=== PATIENT | male | born 1990 | race American Indian/Alaskan Native ===

== ENCOUNTER 2020-10-19 19:29 | Emergency (ER) | payer SELFPAY ==
[2020-10-19 19:37] VITALS: BP 141/97
[2020-10-19] MEDS ORDERED: ONDANSETRON 4 MG/2 ML INJ IV ONE (19:37)
[2020-10-19] MEDS ORDERED: LACTATED RINGERS 1,000 ML IV ONE (19:37)
--- NOTE | 2020-10-19 19:38 | Emergency Department Report ---
ED General Adult HPI - General Chief complaint: Abdominal Pain Stated complaint: ABDOMINAL PAIN;VOMITING;DIARRHEA Time Seen by Provider: 10/19/20 19:36 Source: patient Mode of arrival: Ambulatory Limitations: No Limitations - History of Present Illness Initial comments: 30-year-old -[place] male patient presents with complaints of nausea, vomiting, diarrhea, and upper abdominal pain starting last night. Patient states the vomiting began after heavy alcohol intake. He denies any hematemesis/coffee-ground emesis, melena/hematochezia, fever/chills/sweats, chest pain, shortness of breath, cough, urinary symptoms. Patient rates his current abdominal pain is a 5/10 in severity and describes it as achy cramping type pain. No history of abdominal surgeries per patient. No other prior medical history. -: Sudden - Related Data Previous Rx's Medication Instructions Recorded Last Taken Type Famotidine [Pepcid] 20 mg PO BID 5 Days #10 tablet 10/19/20 Unknown Rx Ondansetron [Zofran Odt] 4 mg PO Q8HR PRN #8 tab.rapdis 10/19/20 Unknown Rx Allergies Allergy/AdvReac Type Severity Reaction Status Date / Time No Known Allergies Allergy Unverified 10/19/20 19:37 ED Review of Systems ROS: Stated complaint: ABDOMINAL PAIN;VOMITING;DIARRHEA Other details as noted in HPI Constitutional: denies: chills, diaphoresis, fever, malaise, weakness Respiratory: denies: cough, shortness of breath Cardiovascular: denies: chest pain Endocrine: denies: excessive sweating Gastrointestinal: abdominal pain, nausea, vomiting, diarrhea. denies: constipation, hematemesis, melena, hematochezia Genitourinary: denies: urgency, dysuria, frequency, hematuria, discharge Musculoskeletal: denies: back pain Skin: denies: change in color Neurological: denies: headache ED Past Medical Hx - Social History Smoking Status: Current Every Day Smoker - Medications Home Medications: Home Medications Medication Instructions Recorded Confirmed Last Taken Type Famotidine [Pepcid] 20 mg PO BID 5 Days #10 tablet 10/19/20 Unknown Rx Ondansetron [Zofran Odt] 4 mg PO Q8HR PRN #8 tab.rapdis 10/19/20 Unknown Rx ED Physical Exam - General Limitations: No Limitations General appearance: alert, in no apparent distress - Head Head exam: Present: atraumatic, normocephalic - Eye Eye exam: Present: normal appearance. Absent: scleral icterus - Neck Neck exam: Present: normal inspection - Respiratory Respiratory exam: Present: normal lung sounds bilaterally. Absent: respiratory distress - Cardiovascular Cardiovascular Exam: Present: regular rate, normal rhythm - GI/Abdominal GI/Abdominal exam: Present: soft, normal bowel sounds. Absent: distended, tenderness, guarding, rebound, rigid - Neurological Exam Neurological exam: Present: alert, oriented X3 - Psychiatric Psychiatric exam: Present: normal affect, normal mood - Skin Skin exam: Present: warm, dry, intact, normal color. Absent: rash ED Course Vital Signs 10/19/20 19:35 Temperature 97.5 F L Pulse Rate 53 L Respiratory 16 Rate Blood Pressure 141/97 O2 Sat by Pulse 100 Oximetry ED Medical Decision Making - Lab Data Result diagrams: 10/19/20 Unknown 10/19/20 Unknown - Medical Decision Making 30-year-old -[place] male patient presents with complaints of nausea, vomiting, diarrhea, and upper abdominal pain starting last night. Patient states the vomiting began after heavy alcohol intake. He denies any hematemesis/coffee-ground emesis, melena/hematochezia, fever/chills/sweats, chest pain, shortness of breath, cough, urinary symptoms. Patient rates his current abdominal pain is a 5/10 in severity and describes it as achy cramping type pain. No history of abdominal surgeries per patient. No other prior medical history. No significant abnormalities noted on labs. Patient's abdomen remains nontender. He was given IV Zofran and 1 L of normal saline. Patient is now tolerating crackers and juice p.o. No vomiting observed here in the ED. He is well-appearing and stable for discharge home. Recommend follow-up with primary care doctor in 3 to 5 days. Strict return precautions discussed in detail with patient who verbalizes understanding. Critical care attestation.: If time is entered above; I have spent that time in minutes in the direct care of this critically ill patient, excluding procedure time. ED Disposition Clinical Impression: Vomiting and diarrhea Disposition: DC-01 TO HOME OR SELFCARE Is pt being admited?: No Condition: Stable Instructions: Nausea and Vomiting, Adult Prescriptions: Famotidine [Pepcid] 20 mg PO BID 5 Days #10 tablet Ondansetron [Zofran Odt] 4 mg PO Q8HR PRN #8 tab.rapdis PRN Reason: Nausea Referrals: PRIMARY CARE,MD [Primary Care Provider] - 3-5 Days Forms: Work/School Release Form(ED)
[2020-10-19 20:05] LABS: Hematocrit 41.5 % (35.5-45.6); Hemoglobin 13.2 gm/dl (11.8-15.2); Mean Corpuscular HGB Conc 32 % (32-34); Mean Corpuscular Volume 90 fl (84-94); Platelet Count 310 K/mm3 (140-440); Red Blood Count 4.62 M/mm3 (3.65-5.03); Red Cell Distribution Width 14.9 % (13.2-15.2)
[2020-10-19 20:30] LABS: Alanine Aminotransferase 12 units/L (7-56); Albumin 4.9 g/dL (3.9-5); BUN/Creatinine Ratio 11; Blood Urea Nitrogen 9 mg/dL (9-20); Calcium 9.6 mg/dL (8.4-10.2); Hemolysis Index 9
[2020-10-19 21:20] LABS: Total Cells Counted 100
[2020-10-19 21:21] LABS: Anisocytosis RARE
== END 2020-10-19 21:50 | disposition home or self-care (01) ==
LOC: ED 19:29
DX: R19.7 Diarrhea, unspecified (principal); R11.10 Vomiting, unspecified; F17.200 Nicotine dependence, unspecified, uncomplicated; Z79.899 Other long term (current) drug therapy
CPT/HCPCS: 36415; 80053; 83690; 85007; 85025; 96361; 96374; 99283; J2405; J7120